=== PATIENT | male | born 1990 | race Asian ===

== ENCOUNTER 2021-02-24 09:36 | Emergency (ER) | payer OTHER ==
[2021-02-24] MEDS ORDERED: ACETAMINOPHEN 325 MG TABLET PO STA (09:59)
--- NOTE | 2021-02-24 10:17 | XRAY Report ---
PROCEDURE: Toe(s) RT INDICATIONS: R toe injyry TECHNIQUE: 3 views of the per toe(s) acquired. COMPARISON: None FINDINGS: Bones: No fractures or dislocations. No suspicious bony lesions. Soft tissues: No suspicious soft tissue densities. IMPRESSION: No visualized acute fracture or dislocation. However, occult injury cannot be excluded. Recommend rick rt interval imaging follow-up in 7-10 days as clinically indicated for additional evaluation. Reviewed by: Jodi Woo MD on 02/24/2021 10:15 AM PDT Approved by: Jodi Woo MD on 02/24/2021 10:15 AM PDT Station ID: [id number]
--- NOTE | 2021-02-24 11:45 | ED Physician Documentation ---
History of Present Illness - Stated complaint Stated Complaint: RT TOE INJ - Chief complaint Chief Complaint: Trauma Ext - History obtained from History obtained from: Patient - Additonal information Additional information: 30-year-old man presents after mechanical fall on Wednesday, injuring his right first toe. Tetanus is up-to-date. Patient states that he was able to weight- bear immediately and is able to weight-bear but has pain if he is on the toe so he is favoring it. He had sudden onset, constant throbbing moderate severity pain associated with swelling. It is nonradiating and worse when he bends the toe. Patient is supposed to leave on naval detachment in 2 days and is wondering if he is able to go. Review of Systems Skin: reports: Other (superficial avulsed skin to distal tip of R first toe without nailbed involvement. cap refill intact) Musculoskeletal: reports: Joint pain, Other (R first MTP joint ttp. swelling along MTP joint. no erythema. 2+ DP/PT pulses. tender with flexion of the toe) PD PAST MEDICAL HISTORY - Allergies Allergies/Adverse Reactions: Allergies Allergy/AdvReac Type Severity Reaction Status Date / Time No Known Drug Allergies Allergy Verified 02/24/21 10:02 Results - Vitals Vitals: Vital Signs - 24 hr 02/24/21 09:58 Temperature 36.6 C Heart Rate 79 Respiratory 16 Rate Blood Pressure 146/99 H O2 Saturation 97 Oxygen O2 Source Room air PD MEDICAL DECISION MAKING - ED course ED course: 30-year-old man presents with right first toe injury, without apparent fracture on x-ray. He denies history of gout and this appears to be traumatic in origin. Conservative measures discussed. He will follow up with flight surgery. return precautions given. Departure - Departure Disposition: 01 Home, Self Care Clinical Impression: Toe injury Condition: Stable Instructions: ED RICE Comments: You were seen in the emergency department for right toe injury. There does not appear to be a break on x-ray, but it is possible that x-ray missed a break in the bone. It is important for you to elevate the foot as much as possible and weight-bear only as tolerated. Follow-up with your flight surgeon to determine whether you are able to leave on detachment. Return to the emergency department you have any new or worsening symptoms or other concerns.
[2021-02-24 11:58] VITALS: BP 149/91
== END 2021-02-24 12:18 | disposition home or self-care (01) ==
LOC: ED 09:36
DX: S99.921A Unspecified injury of right foot, initial encounter (principal); W19.XXXA Unspecified fall, initial encounter
CPT/HCPCS: 73660; 99281; 99283; A9270